=== PATIENT | female | born 1985 | race Caucasian/White ===

== ENCOUNTER 2018-10-10 17:24 | Emergency (ER) | payer OTHER ==
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
--- NOTE | 2018-10-11 07:05 | CT ---
CT cervical spine Technique: Multiple axial sections were obtained from above C1 inferiorly to the bottom of T1. Reconstructed sagittal and coronal images were reviewed. Comparison: No prior cervical spine imaging is available. Findings: Mastoid sinuses appear clear. Skull base is intact. Vertebral bodies and posterior arches are intact. No fracture is seen. Vertebral body heights and disc spaces are preserved. No bony central or bony neural foraminal stenosis is seen. No abnormal subluxation is seen on the reconstructed sagittal images. Impression: 1. Nothing acute is appreciated on noncontrast CT study of the cervical spine. Diagnostic code #1
--- NOTE | 2018-10-11 07:42 | CR ---
Chest: PA view of the chest was obtained. Comparison: No previous chest x-ray. Heart size and mediastinum are normal. Lungs are clear. Minimal scoliosis is seen within the spine. Impression: 1. Nothing acute is appreciated on PA chest x-ray. Diagnostic code #2
== END 2018-10-10 20:09 | disposition home or self-care (01) ==
LOC: JD.ED 17:24
DX: S46.911A Strain of unspecified muscle, fascia and tendon at shoulder and upper arm level, right arm, initial encounter (principal); S46.912A Strain of unspecified muscle, fascia and tendon at shoulder and upper arm level, left arm, initial encounter; S13.9XXA Sprain of joints and ligaments of unspecified parts of neck, initial encounter; Z88.2 Allergy status to sulfonamides; Z88.7 Allergy status to serum and vaccine; V89.2XXA Person injured in unspecified motor-vehicle accident, traffic, initial encounter
CPT/HCPCS: 36415; 71045; 71045-26; 72125; 72125-26; 85025; 99282; 99285-25